=== PATIENT | male | born 1975 | race Caucasian/White ===

== ENCOUNTER 2017-06-10 21:12 | Emergency (ER) | payer OTHER ==
[2017-06-10 21:21] VITALS: BMI 33.0
--- NOTE | 2017-06-10 21:31 | DR.GENAD ---
HPI - PCP Primary Care Physician: TOY - HPI Comment HPI Comment: PATIENT EXTENDED HIS LEFT THIGH AND LEG WITH BAR AND BUGGYMOWING AGAINST EXTREMITY. SWELLING AND PAIN LEFT THIGH. ABRSION LEFT LEG. WAS AT [facility] WHERE XRAY INDICATED BONE LESION. SWELLING IS WORSE WITH INCREASE PRESSURE ON THIGH. - Complaint/Symptoms Chief Complaint Doctors Comments: INJURY RIGHT THIGH AND LEG. Chief Complaint:: PT INJURIED LT THIGH AND LOWER LEG AT WORK EXTENTED LEG OUT AGAINST THE BAR ON THE BUGGY Self Treatment fo Chief Complaint: VICODIN - Nurses notes reviewed Nurses Notes Review: Yes - Source History Provided: Patient - Mode of Arrival Mode of Arrival: Wheelchair - Timing Onset of Chief Complaint: 06/10/17 Came on: Gradually - Duration Duration: Constant Duration: Days - Severity Severity: Moderate PMH - PMH Past Medical History: No Past Surgical History: Yes Surgical History: Ortho Surgery Past Surgical History Comment: RT ARM REATTACTED - Family History History of Family Medical Conditions: No - Social History Does any household member use tobacco: No Alcohol Use: None Do you use any recreational Drugs:: No Lives With: Family Lives Where: Home - infectious screening In the last 2 months have you had wt loss of >10#?: NO Have you had fever, night sweats or hemotysis?: No Have you traveled outside the country in the last 6 months?: No Isolation: Standard ROS - Review of Systems Constitutional: No Symptoms Reported Eyes: No Symptoms Reported ENTM: No Symptoms Reported Respiratoy: No Symptoms Reported Cardiovascular: No Symptoms Reported Gastrointestinal/Abdominal: No Symptoms Reported Genitourinary: No Symptoms Reported Neurological: No Symptoms Reported Musculoskeletal: Left, Leg (PAIN), Other (LEFT THIGH PAIN AND SWELLING) Integumentary: No Symptoms Reported Hematologic/Lymphatic: No Symptoms Reported Endocrine: No Symptoms Reported All Other Systems: Reviewed and Negative PE - Vital Signs Vitals: Temperature 98.2 F Pulse Rate [Left Brachial] 83 Pulse Rate 101 Respiratory Rate 18 Blood Pressure [Left Arm] 155/91 Blood Pressure 141/83 O2 Sat by Pulse Oximetry 100 - General Limitations: No Limitations General Appearance: Alert - Head Head Exam: Normal Inspection - Eyes Eye exam: Normal Appearance - ENT ENT Exam: Normal External Ear Exam External Ear Exam: Normal External Inspection TM/Canal Exam: Bilateral Normal Nose Exam: Normal Nose Exam Mouth Exam: Normal Inspection Throat Exam: Normal Inspection - Neck Neck Exam: Normal Inspection - Chest Chest Inspection: Symmetric Chest Wall Rise - Respiratory Respiratory Exam: Normal Lung Sounds Bilat Respiratory Exam: Bilateral Clear to Auscultation - Cardiovascular Cardiovascular Exam: Regular Rate, Normal Rhythm, Normal Heart Sounds - Abdominal Exam Abdominal Exam: Normal Bowel Sounds, Soft, Distention. negative: Tenderness - Extremities Extremities Exam: Tenderness (LEFT THIGH SWOLLEN AND TENDER. DISTAL PULSES ARE INTACT.) - Back Back Exam: Normal Inspection - Neurologic Neurological Exam: Alert, Oriented X3 - Psychiatric Psychiatric Exam: Normal Affect, Normal Mood - Skin Skin Exam: Normal Color [facility] - Additional Information Additional Information Obtained From: Family - Differential Diagnosis Differential Diagnosis: CONTUSION RIGHT THIGH AND LEG. HEMATOMA RIGHT THIGH. Course - Treatment Treatment: SEE ORDERS. - Education/Counseling Education/Counseling: Patient, Family, Education Educated On: Treatment, Diagnosis ROR - Labs Reviewed Laboratory Results Reviewed?: Yes Result Diagrams: 06/10/17 23:35 06/10/17 23:35 Laboratory: WBC 8.5 X10^3/uL (3.6-10.0) 06/10/17 23:35 RBC 4.52 X10^6/uL (4.7-6.0) L 06/10/17 23:35 Hgb 14.2 g/dL (13.5-18.0) 06/10/17 23:35 Hct 40.9 % (42.0-54.0) L 06/10/17 23:35 MCV 90.4 fL (80.0-100.0) 06/10/17 23:35 MCH 31.5 pg (27.0-34.0) 06/10/17 23:35 MCHC 34.9 g/dL (33.0-35.0) 06/10/17 23:35 RDW 12.3 % (11.6-16.5) 06/10/17 23:35 Plt Count 233 X10^3/uL (150.0-450.0) 06/10/17 23:35 MPV 8.4 fL (7.4-11.0) 06/10/17 23:35 Neut % 60.0 % (42.0-75.0) 06/10/17 23:35 Lymph % 28.3 % (21.0-51.0) 06/10/17 23:35 [place] % 10.8 % (0.0-13.0) 06/10/17 23:35 Eos % 0.5 % (0.9-2.9) L 06/10/17 23:35 Baso % 0.4 % (0.2-1.0) 06/10/17 23:35 Neut # 5.1 x10^3/uL (2.2-4.8) H 06/10/17 23:35 Lymph # 2.4 X10^3/uL (1.3-2.9) 06/10/17 23:35 [place] # 0.9 x10^3/uL (0.3-0.8) H 06/10/17 23:35 Eos # 0.0 x10^3/uL (0.0-0.2) 06/10/17 23:35 Baso # 0.0 X10^3/uL (0.0-0.1) 06/10/17 23:35 Absolute Nucleated RBC 0.0 /100WBC 06/10/17 23:35 INR Target Range - 06/10/17 23:35 INR 0.96 (0.8-1.3) 06/10/17 23:35 PTT 25.1 SECONDS (22.9-36.5) 06/10/17 23:35 PTT Comment - 06/10/17 23:35 Sodium 139 mmol/L (136-145) 06/10/17 23:35 Corrected Sodium 140 mmol/L (136-145) 06/10/17 23:35 Potassium 3.8 mmol/L (3.5-5.1) 06/10/17 23:35 Chloride 103 mmol/L (98-107) 06/10/17 23:35 Carbon Dioxide 24.3 mmol/L (21-32) 06/10/17 23:35 BUN 12 mg/dL (7-18) 06/10/17 23:35 Creatinine 0.84 mg/dL (0.70-1.30) 06/10/17 23:35 Est GFR (MDRD) Af Amer > 60 (>60) 06/10/17 23:35 Est GFR (MDRD) Non-Af > 60 (>60) 06/10/17 23:35 Glucose 145 mg/dL (65-99) H 06/10/17 23:35 Calcium 8.6 mg/dL (8.5-10.1) 06/10/17 23:35 Corrected Calcium TNP 06/10/17 23:35 Total Bilirubin 0.60 mg/dL (0.2-1.0) 06/10/17 23:35 AST 26 Units/L (15-37) 06/10/17 23:35 ALT 34 Units/L (12-78) 06/10/17 23:35 Alkaline Phosphatase 88 Units/L (46-116) 06/10/17 23:35 Total Protein 7.0 g/dL (6.4-8.2) 06/10/17 23:35 Albumin 3.8 g/dL (3.4-5.0) 06/10/17 23:35 Globulin 3.2 g/dL (2.5-4.5) 06/10/17 23:35 Albumin/Globulin Ratio 1.2 Ratio (1.1-2.1) 06/10/17 23:35 - XRAY XRAY Interpreted by: Radiologist XRAY Findings: REPORT DISCUSS WITH PATIENT. - Diagnosis Discharge Problem: Contusion of left thigh, Muscle strain of left thigh, Muscle tear, Osteopoikilosis - Discharge Plan Disposition: 01 HOME, SELF-CARE Condition: Stable Prescriptions: Cyclobenzaprine HCl [FLEXERIL 10 MG *] 10 mg PO TID PRN #30 tab PRN Reason: Ibuprofen [MOTRIN TAB 800 MG *] 800 mg PO Q8H PRN #30 tab PRN Reason: Pain/Inflammation - Follow ups/Referrals Follow ups/Referrals: Galileo Tatum [Primary Care Provider] - 3 days - Instructions Instructions: Quadriceps Strain With Rehab-SportsMed, Musculoskeletal Pain Additional Instructions: RETURN TO ED IF WORSE.
[2017-06-10] MEDS ORDERED: NS 1000 ML 1,000 ML IV ONE (22:15)
[2017-06-10] MEDS ORDERED: ZOFRAN INJ 4 MG VIAL IVP ONE (22:19)
[2017-06-10] MEDS ORDERED: MORPHINE SULFATE INJ 4 MG IVP ONE (22:19)
[2017-06-10] MEDS ORDERED: MORPHINE SULFATE INJ 4 MG ONE (22:35)
[2017-06-10] MEDS ORDERED: ZOFRAN INJ 4 MG VIAL ONE (22:35)
[2017-06-10] MEDS ORDERED: LR 1000 ML IV 1,000 ML IV ONE (22:36)
--- NOTE | 2017-06-10 23:02 | MRI ---
MRI left femur without contrast Indication: Trauma with left leg swelling. Also with concern for bone tumor per outside facility. Technique: Helical CT images of the left femur were obtained without IV contrast. Reformatted images in the coronal and sagittal planes were also generated for review. Comparison: None Findings: Evaluation is limited without intravenous contrast. Given these limitations, visualized marrow signal appears normal. No acute fracture, malalignment or suspicious osseous lesion is identified. There is moderate intramuscular edema of the distal quadriceps musculature, predominantly involving the dista l vastus lateralis and intermedius muscles. Moderate edema layering along the superficial fascia of t he lateral thigh is also noted. Within the limits of a noncontrast exam, no discrete soft tissue mass lesions are identified. The unenhanced neurovascular bundles are grossly within normal limits. No le ft inguinal adenopathy is seen. The visualized contents of the lower pelvis demonstrate no gross unex pected findings. Impression: Moderate intramuscular edema of the distal vastus lateralis and intermedius muscles, compatible with high-grade muscle strain/tears. No acute osseous abnormality is identified. Within the limitations of a noncontrast exam, no suspicious osseous or soft tissue lesion is identifi ed within the imaged left thigh. Reported By:
[2017-06-10 23:59] LABS: BASOPHILS % (AUTO) 0.4 % (0.2-1.0); EOSINOPHILS % (AUTO) 0.5 % (0.9-2.9); HEMATOCRIT 40.9 % (42.0-54.0); HEMOGLOBIN 14.2 g/dL (13.5-18.0); LYMPHOCYTES # (AUTO) 2.4 X10^3/uL (1.3-2.9); LYMPHOCYTES % (AUTO) 28.3 % (21.0-51.0); MEAN CORPUSCULAR HEMOGLOBIN 31.5 pg (27.0-34.0); MEAN CORPUSCULAR HGB CONC 34.9 g/dL (33.0-35.0); MEAN CORPUSCULAR VOLUME 90.4 fL (80.0-100.0); MEAN PLATELET VOLUME 8.4 fL (7.4-11.0); MONOCYTES # (AUTO) 0.9 x10^3/uL (0.3-0.8); MONOCYTES % (AUTO) 10.8 % (0.0-13.0); NEUTROPHILS # (AUTO) 5.1 x10^3/uL (2.2-4.8); PLATELET COUNT 233 X10^3/uL (150.0-450.0); RED BLOOD COUNT 4.52 X10^6/uL (4.7-6.0); RED CELL DISTRIBUTION WIDTH 12.3 % (11.6-16.5); WHITE BLOOD COUNT 8.5 X10^3/uL (3.6-10.0)
[2017-06-11 00:09] LABS: ALANINE AMINOTRANSFERASE 34 Units/L (12-78); ALBUMIN 3.8 g/dL (3.4-5.0); ALKALINE PHOSPHATASE 88 Units/L (46-116); ASPARTATE AMINO TRANSFERASE 26 Units/L (15-37); BLOOD UREA NITROGEN 12 mg/dL (7-18); CALCIUM 8.6 mg/dL (8.5-10.1); CARBON DIOXIDE 24.3 mmol/L (21-32); CHLORIDE 103 mmol/L (98-107); COR NA(FOR HYPERGLY) 140 mmol/L (136-145); CREATININE 0.84 mg/dL (0.70-1.30); SODIUM 139 mmol/L (136-145); eGFR BLACK RACES > 60 (>60); eGFR NON BLACK RACES > 60 (>60)
[2017-06-11 00:58] VITALS: BP 155/91
--- NOTE | 2017-06-11 02:38 | MRI ---
MRI of the left lower leg without contrast Indication: Trauma with pain and swelling of the left thigh and lower leg. Also with concern for bone tumor per outside facility Technique: Multisequence, multiplanar MR images of the left lower leg were obtained without IV contra st. Comparison: None Findings: Evaluation is limited without intravenous contrast. Given these limitations, there are smal l hypointense intramedullary foci within the distal femur and proximal tibia without associated marro w edema, suggestive for osteopoikilosis. Visualized marrow signal is otherwise within normal limit. N o acute fracture, malalignment, intramedullary/periosteal edema or suspicious osseous lesion is ident ified. There is moderate pretibial subcutaneous edema, suggestive for mild contusions in the setting of trau ma. Small soft tissue edema is also seen within the distal lateral thigh. Limited images of the knee demonstrate no gross evidence of internal derangement. The imaged myotendinous structures of the left lower leg are normal in appearance and signal. The visualized neurovascular bundles are also grossly unremarkable. Impression: Limited MRI exam without intravenous contrast. Small foci of hypointense intramedullary signal within the distal femur and proximal tibia without as sociated marrow edema. 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 Otherwise, no definite suspicious intramedullary lesions are identified, within the limitations of a noncontrast MRI exam. Moderate pretibial subcutaneous edema, likely reflecting soft tissue contusions in the setting of tra alyssa. No acute fracture or malalignment is identified. The above findings were discussed with Dr. Mcmahon by Dr. Anderson via telephone at 2:30 a.m. 06/11/2017. Reported By:
== END 2017-06-11 01:23 | disposition home or self-care (01) ==
LOC: ER 21:31
DX: S70.12XA Contusion of left thigh, initial encounter (principal); S86.819A Strain of other muscle(s) and tendon(s) at lower leg level, unspecified leg, initial encounter; S39.012A Strain of muscle, fascia and tendon of lower back, initial encounter; Q78.8 Other specified osteochondrodysplasias; X58.XXXA Exposure to other specified factors, initial encounter; Y92.69 Other specified industrial and construction area as the place of occurrence of the external cause
CPT/HCPCS: 36415; 73718; 80053; 85025; 85610; 85730; 96365; 96374; 96375; 99283; 99284; A4222; J2270; J2405; J7120

== ENCOUNTER 2021-03-11 09:46 | Inpatient (IN) ==
--- NOTE | 2021-03-11 07:49 | RAD ---
HISTORYCOVID, KURT PINA/LAT [id number]/22/2021.TECHNIQUETwo-view chest.FINDINGSCardiac and mediastinal contours are within normal limits. Interval worsening in bilateral airspace and interstitial opacities with a mid to low er lung predominance. No definite pleural effusion or pneumothorax.IMPRESSIONInterval worsening in bi lateral airspace disease from COVID 19 pneumonia.Electronically signed by: Jerome Flores (Mar 11, 2021 0 7:48:06)
[2021-03-11] MEDS: REMDESIVIR 100 MG in NS 100 ML IV + SPIKE MINIBAG* 120 ML IV SCH (08:32)
[2021-03-11 08:36] LABS: BASOPHILS % (AUTO) 0.1 % (0.2-1.0); HEMATOCRIT 47.2 % (42.0-54.0); HEMOGLOBIN 16.3 g/dL (13.5-18.0); LYMPHOCYTES # (AUTO) 1.2 X10^3/uL (1.3-2.9); MEAN CORPUSCULAR HEMOGLOBIN 31.1 pg (27.0-34.0); MEAN CORPUSCULAR HGB CONC 34.4 g/dL (33.0-35.0); MEAN CORPUSCULAR VOLUME 90.2 fL (80.0-100.0); MEAN PLATELET VOLUME 7.6 fL (7.4-11.0); MONOCYTES # (AUTO) 0.8 x10^3/uL (0.3-0.8); MONOCYTES % (AUTO) 4.1 % (0.0-13.0); NEUTROPHILS # (AUTO) 18.1 x10^3/uL (2.2-4.8); NEUTROPHILS % (AUTO) 89.8 % (42.0-75.0); PLATELET COUNT 250 X10^3/uL (150.0-450.0); RED BLOOD COUNT 5.23 X10^6/uL (4.7-6.0); RED CELL DISTRIBUTION WIDTH 12.4 % (11.6-16.5); WHITE BLOOD COUNT 20.1 X10^3/uL (3.6-10.0)
[2021-03-11 08:49] LABS: ALANINE AMINOTRANSFERASE 50 Units/L (12-78); ALBUMIN 3.1 g/dL (3.4-5.0); ALKALINE PHOSPHATASE 63 Units/L (46-116); ASPARTATE AMINO TRANSFERASE 35 Units/L (15-37); BLOOD UREA NITROGEN 20 mg/dL (7-18); CARBON DIOXIDE 34.1 mmol/L (21-32); CHLORIDE 100 mmol/L (98-107); COR CA(FOR HYPOALB) 9.7 mg/dL (8.5-10.1); COR NA(FOR HYPERGLY) 139 mmol/L (136-145); CREATININE 0.86 mg/dL (0.70-1.30); SODIUM 138 mmol/L (136-145); TOTAL PROTEIN 7.5 g/dL (6.4-8.2); eGFR NON BLACK RACES > 60 (>60)
[~2021-03-11 09:46] MED LIST: SOLU-Medrol 125 MG VIAL IVP ONE; TYLENOL 325 MG TAB PO ONE
[2021-03-11 09:54] VITALS: BMI 29.9
[2021-03-11] MEDS ORDERED: NS 100 ML IV 100 ML ONE (10:09)
--- NOTE | 2021-03-11 10:10 | DR.SOBA ---
HPI Time Seen Time Seen by Provider: 03/11/21 10:00 Primary Care Physician Primary Care Physician: STORMANT Complaints Chief Complaint Doctors Comments: sent down from infusion clinic w elev dimer and concern for PE. 3 days into outpt infusions for COVID. worsening. Chief Complaint:: Rosy GRANT RN, CALLS AND STATES PT. RECEIVED HIS THIRD DOSE OF REMDESIVIR TODAY AN OUT PATIENT AND LAB CALLED WITH CRITIAL D-DIMER LEVEL SO PT. WAS SENT TO THE ER FOR CTA OF CHEST TO R/O PE. PT. IS COVID POSITIVE AND TESTED POSTIVIE ON . PT. IS ON O2 @ 3LPM VIA N/C. COVID-19 Coronavirus risk:travel/contact w/high risk person: Yes Has patient experienced Coronavirus symptoms: Yes Coronavirus symptoms experienced: Fever Reviewed Nurses Notes Reviewed: Yes Source History Provided: Patient and Other Mode of Arrival Mode of Arrival: Wheelchair Timing Onset of Chief Complaint: 03/11/21 PMH PMH Past Medical History: Yes Past Medical History Comment: PRE DIABETIC Past Surgical History: Yes Surgical History: Cholecystectomy and Ortho Surgery Family History History of Family Medical Conditions: Yes Family Medical History: Diabetes Mellitus Social History Does patient currently use any type of tobacco product: No Have you used tobacco products in the last 12 months: No Type of Tobacco Use: None Does any household member use tobacco: No Alcohol Use: None Do you use any recreational Drugs:: No Lives With: Spouse Lives Where: Home Travel Risk Coronavirus risk:travel/contact w/high risk person: Yes Has patient experienced Coronavirus symptoms: Yes Coronavirus symptoms experienced: Fever Infectious screening In the last 2 months have you had wt loss of >10#?: NO Have you had fever, night sweats or hemotysis?: No Have you traveled outside the country in the last 6 months?: No Isolation: Droplet ROS Review of Systems Constitutional: See HPI Eyes: No Symptoms Reported ENTM: No Symptoms Reported Respiratoy: See HPI Cardiovascular: See HPI Gastrointestinal/Abdominal: No Symptoms Reported Genitourinary: No Symptoms Reported Neurological: No Symptoms Reported Musculoskeletal: No Symptoms Reported Integumentary: No Symptoms Reported Psychiatric: No Symptoms Reported All Other Systems: Reviewed and Negative PE Vital Signs Vitals: Temperature 97.8 F Pulse Rate [Radial] 80 Pulse Rate 84 Respiratory Rate 22 Blood Pressure [Left Arm] 119/75 Blood Pressure 121/83 O2 Sat by Pulse Oximetry 91 General Limitations: No Limitations General Appearance: Alert and In No Apparent Distress Head Head Exam: Normal Inspection, Atraumatic and Normocephalic Eyes Eye exam: Normal Appearance, PERRL and EOMI ENT ENT Exam: Normal Exam Neck Neck Exam: Normal Inspection Respiratory Respiratory Exam: negative Accessory Muscle Use Respiratory Exam: Bilateral: Rales and Bilateral: Rhonchi Cardiovascular Cardiovascular Exam: Regular Rate Abdominal Exam Abdominal Exam: Normal Inspection and Normal Bowel Sounds Extremities Extremities Exam: Normal Inspection and Full ROM Back Back Exam: Normal Inspection and Full ROM Neurologic Neurological Exam: Alert and Oriented X3 Skin Skin Exam: Warm, Dry and Intact COURSE Treatment Treatment: heparin drip ROR Labs Reviewed Laboratory Results Reviewed?: Yes (pos dimer) Result Diagrams: 03/11/21 07:50 03/11/21 07:50 Laboratory: WBC 20.1 X10^3/uL (3.6-10.0) H D 03/11/21 07:50 RBC 5.23 X10^6/uL (4.7-6.0) 03/11/21 07:50 Hgb 16.3 g/dL (13.5-18.0) 03/11/21 07:50 Hct 47.2 % (42.0-54.0) 03/11/21 07:50 MCV 90.2 fL (80.0-100.0) 03/11/21 07:50 MCH 31.1 pg (27.0-34.0) 03/11/21 07:50 MCHC 34.4 g/dL (33.0-35.0) 03/11/21 07:50 RDW 12.4 % (11.6-16.5) 03/11/21 07:50 Plt Count 250 X10^3/uL (150.0-450.0) 03/11/21 07:50 MPV 7.6 fL (7.4-11.0) 03/11/21 07:50 Neut % (Auto) 89.8 % (42.0-75.0) H 03/11/21 07:50 Lymph % (Auto) 6.0 % (21.0-51.0) L 03/11/21 07:50 [place] % (Auto) 4.1 % (0.0-13.0) 03/11/21 07:50 Eos % (Auto) 0.0 % (0.9-2.9) L 03/11/21 07:50 Baso % (Auto) 0.1 % (0.2-1.0) L 03/11/21 07:50 Neut # (Auto) 18.1 x10^3/uL (2.2-4.8) H 03/11/21 07:50 Lymph # (Auto) 1.2 X10^3/uL (1.3-2.9) L 03/11/21 07:50 [place] # (Auto) 0.8 x10^3/uL (0.3-0.8) 03/11/21 07:50 Eos # (Auto) 0.0 x10^3/uL (0.0-0.2) 03/11/21 07:50 Baso # (Auto) 0.0 X10^3/uL (0.0-0.1) 03/11/21 07:50 Absolute Nucleated RBC 0.1 /100WBC 03/11/21 07:50 PT 14.2 SECONDS (11.8-14.3) 03/11/21 11:38 INR Target Range - 03/11/21 11:38 INR 1.15 (0.8-1.3) 03/11/21 11:38 APTT 24.1 SECONDS (22.9-36.5) 03/11/21 11:38 PTT Comment - 03/11/21 11:38 D-Dimer > 20.00 ug/ml (0.0-0.57) H* 03/11/21 07:50 Sodium 138 mmol/L (136-145) 03/11/21 07:50 Corrected Sodium 139 mmol/L (136-145) 03/11/21 07:50 Potassium 5.2 mmol/L (3.5-5.1) H 03/11/21 07:50 Chloride 100 mmol/L (98-107) 03/11/21 07:50 Carbon Dioxide 34.1 mmol/L (21-32) H 03/11/21 07:50 BUN 20 mg/dL (7-18) H 03/11/21 07:50 Creatinine 0.86 mg/dL (0.70-1.30) 03/11/21 07:50 Est GFR (MDRD) Af Amer > 60 (>60) 03/11/21 07:50 Est GFR (MDRD) Non-Af > 60 (>60) 03/11/21 07:50 Glucose 144 mg/dL (65-99) H 03/11/21 07:50 Calcium 9.0 mg/dL (8.5-10.1) 03/11/21 07:50 Corrected Calcium 9.7 mg/dL (8.5-10.1) 03/11/21 07:50 Ferritin 2191 ng/mL (26-388) H 03/11/21 07:50 Total Bilirubin 0.90 mg/dL (0.2-1.0) 03/11/21 07:50 AST 35 Units/L (15-37) 03/11/21 07:50 ALT 50 Units/L (12-78) 03/11/21 07:50 Alkaline Phosphatase 63 Units/L (46-116) 03/11/21 07:50 C-Reactive Protein 55.70 mg/L (0-3.0) H 03/11/21 07:50 B-Natriuretic Peptide 10.2 pg/mL (0-79) 03/11/21 07:50 Total Protein 7.5 g/dL (6.4-8.2) 03/11/21 07:50 Albumin 3.1 g/dL (3.4-5.0) L 03/11/21 07:50 Globulin 4.4 g/dL (2.5-4.5) 03/11/21 07:50 Albumin/Globulin Ratio 0.7 Ratio (1.1-2.1) L 03/11/21 07:50 XRAY X-ray Results: ct shows PE right sided Opioid Opioid Risk Tool Age (Ruperto box if 16-45): No History of Preadolescent Sexual Abuse: No Total: 0 Total Score Risk Category: Low Risk Copyright: Steve GAGNON predicting aberrant behaviors Diagnosis Discharge Problem: Pneumonia due to COVID-19 virus, Pulmonary emboli Instructions Forms: Precautions for COVID19 Regen-Cov Social Distancing
--- NOTE | 2021-03-11 11:23 | CT ---
HISTORYCOVID, shortness of breath, elevated D-dimerSTUDYCTA chest with contrast for pulmonary embolusTechnique: Axial post-contrast images with coronal, sagittal, and 3 dimensional maximum intensity projection images obtained and evaluated. Dose reduction procedures were used with mA/kv adjusted for body size.COMPARISON03/09/2021FINDINGSExamination is positive for acute pulmonary thromboembolic disease in volving the arterial branch to the right lower lobe and 3 right lower lobe segmental branches. This r epresents a change from the recent prior examination which these areas were free of thrombus. No othe r emboli are identified. Examination of the mediastinum demonstrated no evidence for mediastinal mass es, enlarged mediastinal or enlarged hilar adenopathy or significant aortic abnormality. The heart is enlarged. No pleural effusions are identified. No chest wall or axillary abnormality is identified. Those portions of the upper abdominal organ visualized were within normal limits to the limitations o f early arterial injection timing. Examination of the lung black demonstrated diffuse bilateral grou nd-glass infiltrates central, peripheral, and juxtafissural in location demonstrating subpleural spar ing and some areas of peribronchial consolidation. Findings are progressive when compared with the pr ior examination and are consistent with multifocal pneumonia which could be bacterial, viral, or atyp ical viral in origin. This pattern is certainly consistent with COVID-19 lung involvement, per progre ssive since the prior examination.IMPRESSIONExam positive for acute pulmonary thromboembolic disease as described aboveDiffuse severe bilateral ground-glass infiltrates worsening when compared with the prior examination and consistent with worsening COVID-19 lung involvement.Electronically signed by: Matthew ORTIZ (Mar 11, 2021 11:21:08)
[2021-03-11] MEDS ORDERED: HEPARIN SODIUM IN D5W 25,000 UNITS/500 ML BAG IV PRN (11:29)
[2021-03-11] MEDS ORDERED: HEPARIN SODIUM INJ 5000 UNITS IVP ONE ×2 (12:10→20:04)
[2021-03-11] MEDS ORDERED: HEPARIN SODIUM INJ 5000 UNITS ONE (12:39)
[2021-03-11] MEDS ORDERED: HEPARIN SODIUM IN D5W 25,000 UNITS/500 ML BAG ONE (12:40)
[2021-03-11] MEDS: HEPARIN SODIUM IN D5W 25,000 UNITS/500 ML BAG IV PRN (12:48)
[2021-03-11] MEDS ORDERED: IVERMECTIN PO SCH (16:00)
[2021-03-11] MEDS ORDERED: IVERMECTIN PO ONE (16:00)
[2021-03-11] MEDS: ZOSYN VIAL 3.375 GRAMS 3.375 G in NS 100 ML IV + SPIKE MINIBAG* 100 ML IV SCH ×3 (18:10→20:43)
[2021-03-11] MEDS: PEPCID TAB 40 MG PO SCH ×2 (18:10→23:23)
[2021-03-11] MEDS: VITAMIN A PO SCH (18:11)
[2021-03-11] MEDS: ZINC SULFATE PO SCH ×2 (18:11→23:24)
[2021-03-11] MEDS: NS 1000 ML 1,000 ML IV SCH (18:12)
[2021-03-11] MEDS: TRICOR TAB 160 MG PO SCH (18:12)
[2021-03-11] MEDS: VIBRAMYCIN PO SCH ×2 (18:12→23:23)
[2021-03-11] MEDS: SOLU-Medrol 125 MG VIAL IVP SCH ×2 (18:12→23:24)
[2021-03-11] MEDS: ASCORBIC ACID INJ MULTI-DOSE VIAL 1,500 MG in NS 100 ML IV 100 ML IV SCH ×3 (18:13→23:23)
[2021-03-11] MEDS: VITAMIN D (1.25MG) PO SCH (18:13)
[2021-03-11] MEDS: PULMICORT NEB TX 0.5 MG NEB SCH (20:24)
[2021-03-11] MEDS: BROVANA IN SCH (20:24)
[2021-03-12] MEDS: ASCORBIC ACID INJ MULTI-DOSE VIAL 1,500 MG in NS 100 ML IV 100 ML IV SCH ×4 (02:08→21:30)
[2021-03-12 03:14] LABS: BASOPHILS % (AUTO) 0.1 % (0.2-1.0); LYMPHOCYTES % (AUTO) 6.3 % (21.0-51.0); MEAN CORPUSCULAR HEMOGLOBIN 30.6 pg (27.0-34.0); MEAN CORPUSCULAR HGB CONC 34.1 g/dL (33.0-35.0); MEAN CORPUSCULAR VOLUME 89.9 fL (80.0-100.0); MEAN PLATELET VOLUME 7.5 fL (7.4-11.0); MONOCYTES # (AUTO) 0.7 x10^3/uL (0.3-0.8); MONOCYTES % (AUTO) 4.1 % (0.0-13.0); NEUTROPHILS # (AUTO) 14.2 x10^3/uL (2.2-4.8); NEUTROPHILS % (AUTO) 89.5 % (42.0-75.0); PLATELET COUNT 207 X10^3/uL (150.0-450.0); RED BLOOD COUNT 4.89 X10^6/uL (4.7-6.0); RED CELL DISTRIBUTION WIDTH 12.5 % (11.6-16.5); WHITE BLOOD COUNT 15.8 X10^3/uL (3.6-10.0)
[2021-03-12 03:22] LABS: ALANINE AMINOTRANSFERASE 54 Units/L (12-78); ALBUMIN 2.7 g/dL (3.4-5.0); ALKALINE PHOSPHATASE 65 Units/L (46-116); ASPARTATE AMINO TRANSFERASE 25 Units/L (15-37); BLOOD UREA NITROGEN 18 mg/dL (7-18); CALCIUM 7.9 mg/dL (8.5-10.1); CARBON DIOXIDE 31.1 mmol/L (21-32); CHLORIDE 101 mmol/L (98-107); COR CA(FOR HYPOALB) 8.9 mg/dL (8.5-10.1); COR NA(FOR HYPERGLY) 141 mmol/L (136-145); CREATININE 0.99 mg/dL (0.70-1.30); SODIUM 138 mmol/L (136-145); TOTAL PROTEIN 6.4 g/dL (6.4-8.2); eGFR NON BLACK RACES > 60 (>60)
[2021-03-12 05:00] LABS: ABG BASE EXCESS 4.7 mmol/L (-2.0-2.0); ABG HCO3 29.2 mmol/L (22-26)
[2021-03-12 05:01] LABS: ABG ALLEN TEST POS
[2021-03-12] MEDS: ZOSYN VIAL 3.375 GRAMS 3.375 G in NS 100 ML IV + SPIKE MINIBAG* 100 ML IV SCH ×3 (05:30→21:30)
[2021-03-12] MEDS: HEPARIN SODIUM IN D5W 25,000 UNITS/500 ML BAG IV PRN (05:30)
[2021-03-12] MEDS: SOLU-Medrol 125 MG VIAL IVP SCH ×3 (05:30→21:30)
--- NOTE | 2021-03-12 08:01 | RAD ---
HISTORYSOB, COVID-19 pneumoniaSTUDYCHEST x-ray, 1 VIEWCOMPARISONX-ray 10/06/2020FINDINGSDiffuse lung infiltrates are similar to prior study. Heart is borderline enlarged. Prominence of the mediastinum is similar to prior study and is probably due increased mediastinal fat. No pneumothorax or pleural effusion is seen.IMPRESSIONPersistent bilateral pneumonia.Electronically signed by: Jonh Echols (Mar 12, 2021 07:59:19)
[2021-03-12] MEDS ORDERED: REMDESIVIR 100 MG in NS 250 ML IV 250 ML IV SCH (09:00)
[2021-03-12] MEDS: VITAMIN D (1.25MG) PO SCH (09:10)
[2021-03-12] MEDS: ELIQUIS PO SCH ×2 (09:11→21:30)
[2021-03-12] MEDS: ZINC SULFATE PO SCH ×2 (09:11→21:30)
[2021-03-12] MEDS: VIBRAMYCIN PO SCH ×2 (09:11→21:30)
[2021-03-12] MEDS: PEPCID TAB 40 MG PO SCH ×2 (09:11→21:30)
[2021-03-12] MEDS: VITAMIN A PO SCH (09:12)
[2021-03-12] MEDS: TRICOR TAB 160 MG PO SCH (09:13)
[2021-03-12] MEDS: REMDESIVIR 100 MG in NS 100 ML IV + SPIKE MINIBAG* 120 ML IV SCH (10:30)
--- NOTE | 2021-03-12 13:13 | DR.H&P ---
H&P History & Physical for Day of: H&P Date: 03/11/21 Chief Complaint Chief Complaint: Pulmonary Embolism and Covid Allergies Allergies Allergy/AdvReac Type Severity Reaction Status Date / Time No Known Drug Allergies Allergy Verified 03/11/21 08:48 History of Present Illness History of Present Illness: 45 yo wm who has been recieving Remdesivir as an outpt. was found to have a very high D-dimer today. He was sent for CTA which showed he has pulm. emboli in the right lung. He was subsequently admitted for the above. Past Medical History Additional Medical History: Covid-19/ Hypocholesteremia. Past Surgical History Surgical History: Cholecystectomy and Ortho Surgery Family History Family Medical History: Diabetes Mellitus Social History Does patient currently use any type of tobacco product: No Have you used tobacco products in the last 12 months: No Type of Tobacco Use: None Does any household member use tobacco: No Alcohol Use: None Drug Use: None Medications Home Medications: No Known Drug Allergies Allergy (Verified 03/11/21 08:48) CONTINUE taking the following medications rosuvastatin 40 mg PO HS 03/11/21 [History] ascorbic acid (vitamin C) 1,000 mg PO BID 03/12/21 [History] Labs Result Diagrams: 03/12/21 02:50 03/12/21 02:50 Labs: Laboratory WBC 15.8 X10^3/uL (3.6-10.0) H 03/12/21 02:50 RBC 4.89 X10^6/uL (4.7-6.0) 03/12/21 02:50 Hgb 15.0 g/dL (13.5-18.0) 03/12/21 02:50 Hct 44.0 % (42.0-54.0) 03/12/21 02:50 MCV 89.9 fL (80.0-100.0) 03/12/21 02:50 MCH 30.6 pg (27.0-34.0) 03/12/21 02:50 MCHC 34.1 g/dL (33.0-35.0) 03/12/21 02:50 RDW 12.5 % (11.6-16.5) 03/12/21 02:50 Plt Count 207 X10^3/uL (150.0-450.0) 03/12/21 02:50 MPV 7.5 fL (7.4-11.0) 03/12/21 02:50 Neut % (Auto) 89.5 % (42.0-75.0) H 03/12/21 02:50 Lymph % (Auto) 6.3 % (21.0-51.0) L 03/12/21 02:50 [place] % (Auto) 4.1 % (0.0-13.0) 03/12/21 02:50 Eos % (Auto) 0.0 % (0.9-2.9) L 03/12/21 02:50 Baso % (Auto) 0.1 % (0.2-1.0) L 03/12/21 02:50 Neut # (Auto) 14.2 x10^3/uL (2.2-4.8) H 03/12/21 02:50 Lymph # (Auto) 1.0 X10^3/uL (1.3-2.9) L 03/12/21 02:50 [place] # (Auto) 0.7 x10^3/uL (0.3-0.8) 03/12/21 02:50 Eos # (Auto) 0.0 x10^3/uL (0.0-0.2) 03/12/21 02:50 Baso # (Auto) 0.0 X10^3/uL (0.0-0.1) 03/12/21 02:50 Absolute Nucleated RBC 0.0 /100WBC 03/12/21 02:50 PT 14.2 SECONDS (11.8-14.3) 03/11/21 11:38 INR Target Range - 03/11/21 11:38 INR 1.15 (0.8-1.3) 03/11/21 11:38 APTT 115.2 SECONDS (22.9-36.5) H 03/12/21 02:50 PTT Comment - 03/12/21 02:50 D-Dimer > 20.00 ug/ml (0.0-0.57) H* 03/11/21 07:50 Sample Site L rad 03/12/21 04:55 ABG pH 7.450 (7.35-7.45) 03/12/21 04:55 ABG pCO2 42.0 mmHg (35.0-45.0) 03/12/21 04:55 ABG pO2 65.0 mmHg (80.0-100.0) L 03/12/21 04:55 ABG HCO3 29.2 mmol/L (22-26) H 03/12/21 04:55 ABG O2 Saturation 93.0 % (90-100) 03/12/21 04:55 ABG Base Excess 4.7 mmol/L (-2.0-2.0) H 03/12/21 04:55 [place] Test Pos 03/12/21 04:55 A-a Gradient 168.0 mmHg 03/12/21 04:55 FiO2 40.0 03/12/21 04:55 Blood Gas Comments Pt tolerated well sa 03/12/21 04:55 Sodium 138 mmol/L (136-145) 03/12/21 02:50 Corrected Sodium 141 mmol/L (136-145) 03/12/21 02:50 Potassium 4.7 mmol/L (3.5-5.1) 03/12/21 02:50 Chloride 101 mmol/L (98-107) 03/12/21 02:50 Carbon Dioxide 31.1 mmol/L (21-32) 03/12/21 02:50 BUN 18 mg/dL (7-18) 03/12/21 02:50 Creatinine 0.99 mg/dL (0.70-1.30) 03/12/21 02:50 Est GFR (MDRD) Af Amer > 60 (>60) 03/12/21 02:50 Est GFR (MDRD) Non-Af > 60 (>60) 03/12/21 02:50 Glucose 216 mg/dL (65-99) H 03/12/21 02:50 Calcium 7.9 mg/dL (8.5-10.1) L 03/12/21 02:50 Corrected Calcium 8.9 mg/dL (8.5-10.1) 03/12/21 02:50 Ferritin 2191 ng/mL (26-388) H 03/11/21 07:50 Total Bilirubin 0.80 mg/dL (0.2-1.0) 03/12/21 02:50 AST 25 Units/L (15-37) 03/12/21 02:50 ALT 54 Units/L (12-78) 03/12/21 02:50 Alkaline Phosphatase 65 Units/L (46-116) 03/12/21 02:50 C-Reactive Protein 29.50 mg/L (0-3.0) H 03/12/21 05:00 B-Natriuretic Peptide 10.2 pg/mL (0-79) 03/11/21 07:50 Total Protein 6.4 g/dL (6.4-8.2) 03/12/21 02:50 Albumin 2.7 g/dL (3.4-5.0) L 03/12/21 02:50 Globulin 3.7 g/dL (2.5-4.5) 03/12/21 02:50 Albumin/Globulin Ratio 0.7 Ratio (1.1-2.1) L 03/12/21 02:50 Review of Systems Constitutional: No Symptoms Reported Eyes: No Symptoms Reported ENT: No Symptoms Reported Respiratory: No Symptoms Reported and SOB with Excertion Cardiovascular: No Symptoms Reported Gastrointestinal: No Symptoms Reported Genitourinary: No Symptoms Reported Musculoskeletal: No Symptoms Reported Skin: No Symptoms Reported Neurological: No Symptoms Reported Physical Exam Vital Signs: Temperature 97.8 F Pulse Rate [Left Brachial] 77 Pulse Rate [Radial] 80 Pulse Rate 78 Respiratory Rate 20 Blood Pressure [Left Arm] 116/69 Blood Pressure 141/85 O2 Sat by Pulse Oximetry 97 Oriented: Normal Eyes: Normal Ear: Normal Nose: Normal Throat: Normal Respiratory: RLL Rhonchi Cardiovascular: Normal : Normal Auscultation: Bowel Sounds: Normal Palpation: Normal Tenderness: Normal Skin: Normal Musculoskeletal: Normal Psychiatric: Normal Mood Description: Calm and Appropriate Affect: Normal Speech Pattern: Clear and Appropriate Assessment/Plan (1) Pneumonia due to COVID-19 virus: Status: Acute Plan: Cont. Doxy IV. Check labs and cxr in am. (2) Hypoxia: Status: Acute Plan: Supplemental O2 (3) Pulmonary emboli: Status: Acute Plan: Admit to hosp. Heparin gtt per protocol. Review H&P Reviewed: Yes
[2021-03-12] MEDS: PULMICORT NEB TX 0.5 MG NEB SCH (20:40)
[2021-03-12] MEDS: BROVANA IN SCH (20:40)
[2021-03-12] MEDS: NS 1000 ML 1,000 ML IV SCH (21:30)
[2021-03-13] MEDS: ASCORBIC ACID INJ MULTI-DOSE VIAL 1,500 MG in NS 100 ML IV 100 ML IV SCH ×3 (02:23→14:11)
[2021-03-13 04:27] LABS: ABG BASE EXCESS 3.2 mmol/L (-2.0-2.0); ABG HCO3 27.9 mmol/L (22-26)
[2021-03-13 04:28] LABS: ABG ALLEN TEST pos
[2021-03-13] MEDS: SOLU-Medrol 125 MG VIAL IVP SCH ×2 (06:26→14:11)
[2021-03-13] MEDS: ZOSYN VIAL 3.375 GRAMS 3.375 G in NS 100 ML IV + SPIKE MINIBAG* 100 ML IV SCH ×2 (06:26→14:11)
[2021-03-13 07:10] LABS: BASOPHILS % (AUTO) 0.1 % (0.2-1.0); HEMATOCRIT 43.6 % (42.0-54.0); HEMOGLOBIN 14.7 g/dL (13.5-18.0); LYMPHOCYTES # (AUTO) 0.7 X10^3/uL (1.3-2.9); LYMPHOCYTES % (AUTO) 4.6 % (21.0-51.0); MEAN CORPUSCULAR HEMOGLOBIN 30.3 pg (27.0-34.0); MEAN CORPUSCULAR HGB CONC 33.8 g/dL (33.0-35.0); MEAN CORPUSCULAR VOLUME 89.7 fL (80.0-100.0); MEAN PLATELET VOLUME 7.9 fL (7.4-11.0); MONOCYTES # (AUTO) 0.6 x10^3/uL (0.3-0.8); MONOCYTES % (AUTO) 3.9 % (0.0-13.0); NEUTROPHILS # (AUTO) 13.7 x10^3/uL (2.2-4.8); NEUTROPHILS % (AUTO) 91.4 % (42.0-75.0); PLATELET COUNT 201 X10^3/uL (150.0-450.0); RED BLOOD COUNT 4.86 X10^6/uL (4.7-6.0); RED CELL DISTRIBUTION WIDTH 12.4 % (11.6-16.5)
[2021-03-13 07:43] LABS: ALANINE AMINOTRANSFERASE 48 Units/L (12-78); ALBUMIN 2.6 g/dL (3.4-5.0); ALKALINE PHOSPHATASE 63 Units/L (46-116); ASPARTATE AMINO TRANSFERASE 21 Units/L (15-37); BLOOD UREA NITROGEN 17 mg/dL (7-18); CALCIUM 7.9 mg/dL (8.5-10.1); CARBON DIOXIDE 28.7 mmol/L (21-32); CHLORIDE 102 mmol/L (98-107); COR NA(FOR HYPERGLY) 138 mmol/L (136-145); CREATININE 0.76 mg/dL (0.70-1.30); SODIUM 136 mmol/L (136-145); TOTAL PROTEIN 6.1 g/dL (6.4-8.2); eGFR NON BLACK RACES > 60 (>60)
--- NOTE | 2021-03-13 08:06 | RAD ---
HISTORYSOB PMH: DMSTUDYCHEST, 1 [id number] trachea is midline. Borderline heart size. There is persistent diffuse alveolar and ground-glass radiopacities, no significant interval change, no evidence of pleural effusions or pneumothorax.IMPRESSIONStable bilateral diffuse alveolar radiopacities.Electronically signed by: Dottie Palacio (Mar 13, 2021 08:04:16)
[2021-03-13] MEDS: ELIQUIS PO SCH (08:16)
[2021-03-13] MEDS: PEPCID TAB 40 MG PO SCH (08:16)
[2021-03-13] MEDS: REMDESIVIR 100 MG in NS 100 ML IV + SPIKE MINIBAG* 120 ML IV SCH (08:17)
[2021-03-13] MEDS: TRICOR TAB 160 MG PO SCH (08:17)
[2021-03-13] MEDS: VIBRAMYCIN PO SCH (08:17)
[2021-03-13 08:19] LABS: METAMYELOCYTES % 1
[2021-03-13 08:20] LABS: PLATELET MORPHOLOGY COMMENT NORMAL (NORMAL)
[2021-03-13] MEDS: ZINC SULFATE PO SCH (08:24)
[2021-03-13] MEDS ORDERED: VITAMIN D3 125 mcg (5,000 UNITS) PO SCH (09:00)
[2021-03-13] MEDS ORDERED: VITAMIN A PO SCH (09:00)
--- NOTE | 2021-03-13 09:18 | PCM.DCPLAN ---
DISCHARGE SUMMARY Admission Date Date of Admission: 03/11/21 Discharge Date Discharge Date: 03/13/21 Admission Diagnoses (1) Pneumonia due to COVID-19 virus: Status: Acute (2) Hypoxia: Status: Acute (3) Pulmonary emboli: Status: Acute (4) COVID-19: Status: Acute Discharge Diagnoses Discharge Diagnosis: Covid-19 [place] Pulmorary Emboli Hypoxia Discharge Medications Discharge Medications: Home Medication List rosuvastatin 40 mg PO HS 03/11/21 [History] ascorbic acid (vitamin C) 1,000 mg PO BID 03/12/21 [History] Prescriptions: Hospital Course Vital Signs: Temperature 98.1 F Pulse Rate [Left Brachial] 73 Pulse Rate [Radial] 80 Pulse Rate 68 Respiratory Rate 18 Blood Pressure [Left Arm] 134/72 Blood Pressure 141/85 O2 Sat by Pulse Oximetry 94 Latest Lab Results: Laboratory Last Values WBC 15.0 X10^3/uL (3.6-10.0) H 03/13/21 05:25 RBC 4.86 X10^6/uL (4.7-6.0) 03/13/21 05:25 Hgb 14.7 g/dL (13.5-18.0) 03/13/21 05:25 Hct 43.6 % (42.0-54.0) 03/13/21 05:25 MCV 89.7 fL (80.0-100.0) 03/13/21 05:25 MCH 30.3 pg (27.0-34.0) 03/13/21 05:25 MCHC 33.8 g/dL (33.0-35.0) 03/13/21 05:25 RDW 12.4 % (11.6-16.5) 03/13/21 05:25 Plt Count 201 X10^3/uL (150.0-450.0) 03/13/21 05:25 Plt Count Comment Adequate (ADEQUATE) 03/13/21 05:25 MPV 7.9 fL (7.4-11.0) 03/13/21 05:25 Neut % (Auto) 91.4 % (42.0-75.0) H 03/13/21 05:25 Lymph % (Auto) 4.6 % (21.0-51.0) L 03/13/21 05:25 [place] % (Auto) 3.9 % (0.0-13.0) 03/13/21 05:25 Eos % (Auto) 0.0 % (0.9-2.9) L 03/13/21 05:25 Baso % (Auto) 0.1 % (0.2-1.0) L 03/13/21 05:25 Neut # (Auto) 13.7 x10^3/uL (2.2-4.8) H 03/13/21 05:25 Lymph # (Auto) 0.7 X10^3/uL (1.3-2.9) L 03/13/21 05:25 [place] # (Auto) 0.6 x10^3/uL (0.3-0.8) 03/13/21 05:25 Eos # (Auto) 0.0 x10^3/uL (0.0-0.2) 03/13/21 05:25 Baso # (Auto) 0.0 X10^3/uL (0.0-0.1) 03/13/21 05:25 Absolute Nucleated RBC 0.1 /100WBC 03/13/21 05:25 Total Counted 100 03/13/21 05:25 Neutrophils % (Manual) 91 % (39-76) H 03/13/21 05:25 Lymphocytes % (Manual) 6 % (13-43) L 03/13/21 05:25 Monocytes % (Manual) 2 % (4-9) L 03/13/21 05:25 Metamyelocytes % 1 03/13/21 05:25 Plt Morphology Comment Normal (NORMAL) 03/13/21 05:25 RBC Morphology Normal (NORMAL) 03/13/21 05:25 PT 14.2 SECONDS (11.8-14.3) 03/11/21 11:38 INR Target Range - 03/11/21 11:38 INR 1.15 (0.8-1.3) 03/11/21 11:38 APTT 115.2 SECONDS (22.9-36.5) H 03/12/21 02:50 PTT Comment - 03/12/21 02:50 D-Dimer > 20.00 ug/ml (0.0-0.57) H* 03/11/21 07:50 Sample Site Rrad 03/13/21 05:00 ABG pH 7.430 (7.35-7.45) 03/13/21 05:00 ABG pCO2 42.0 mmHg (35.0-45.0) 03/13/21 05:00 ABG pO2 63.0 mmHg (80.0-100.0) L 03/13/21 05:00 ABG HCO3 27.9 mmol/L (22-26) H 03/13/21 05:00 ABG O2 Saturation 92.0 % (90-100) 03/13/21 05:00 ABG Base Excess 3.2 mmol/L (-2.0-2.0) H 03/13/21 05:00 Mamadou Test pos 03/13/21 05:00 A-a Gradient 170.0 mmHg 03/13/21 05:00 FiO2 40.0 03/13/21 05:00 Blood Gas Comments [facility] sa 03/13/21 05:00 Sodium 136 mmol/L (136-145) 03/13/21 05:25 Corrected Sodium 138 mmol/L (136-145) 03/13/21 05:25 Potassium 4.8 mmol/L (3.5-5.1) 03/13/21 05:25 Chloride 102 mmol/L (98-107) 03/13/21 05:25 Carbon Dioxide 28.7 mmol/L (21-32) 03/13/21 05:25 BUN 17 mg/dL (7-18) 03/13/21 05:25 Creatinine 0.76 mg/dL (0.70-1.30) 03/13/21 05:25 Est GFR (MDRD) Af Amer > 60 (>60) 03/13/21 05:25 Est GFR (MDRD) Non-Af > 60 (>60) 03/13/21 05:25 Glucose 192 mg/dL (65-99) H 03/13/21 05:25 Calcium 7.9 mg/dL (8.5-10.1) L 03/13/21 05:25 Corrected Calcium 9.0 mg/dL (8.5-10.1) 03/13/21 05:25 Ferritin 2191 ng/mL (26-388) H 03/11/21 07:50 Total Bilirubin 0.80 mg/dL (0.2-1.0) 03/13/21 05:25 AST 21 Units/L (15-37) 03/13/21 05:25 ALT 48 Units/L (12-78) 03/13/21 05:25 Alkaline Phosphatase 63 Units/L (46-116) 03/13/21 05:25 C-Reactive Protein 14.80 mg/L (0-3.0) H 03/13/21 05:25 B-Natriuretic Peptide 10.2 pg/mL (0-79) 03/11/21 07:50 Total Protein 6.1 g/dL (6.4-8.2) L 03/13/21 05:25 Albumin 2.6 g/dL (3.4-5.0) L 03/13/21 05:25 Globulin 3.5 g/dL (2.5-4.5) 03/13/21 05:25 Albumin/Globulin Ratio 0.7 Ratio (1.1-2.1) L 03/13/21 05:25 Hospital Course: After patient was diagnosed with Pulmonary Emboli he was admitted to hospital and started on a Heparin drip. Viral Pnneumonia protocol was continued. Pt is better on the 3rd day and will be discharged home. Instructions Forms: Precautions for COVID19 Regen-Cov Social Distancing
[2021-03-13] MEDS: BROVANA IN SCH (09:28)
[2021-03-13] MEDS: PULMICORT NEB TX 0.5 MG NEB SCH (09:28)
[2021-03-13 11:51] VITALS: BP 132/72
[2021-03-19] MEDS ORDERED: ELIQUIS PO SCH (09:00)
== END 2021-03-13 14:45 | disposition home or self-care (01) | DRG 177 ==
LOC: ER 09:46 → OBS 13:30 → MED/SURG 17:23
PROVIDERS: ADMIT Family Medicine; ATTEND Family Medicine
DX: U07.1 COVID-19; J12.81 Pneumonia due to SARS-associated coronavirus; I26.99 Other pulmonary embolism without acute cor pulmonale